=== PATIENT | female | born 1930 | race Caucasian/White ===

== ENCOUNTER 2017-05-16 09:10 | Emergency (ER) | payer OTHER ==
[~2017-05-16] VITALS: Ht 162.6 cm; Wt 90.4 kg
[~2017-05-16 09:10] MED LIST: ASPIRIN81 M1 PO; CARDURA4 MG PO; CATAPRES0.2 MG PO; FISH OIL 1,0001 EAC9 PO; HYZAAR 50-121 TABLET PO; LEVOXYL75 MCG PO; LEXAPRO10 MG PO; LOPRESSOR25 MG PO; LOPRESSOR50 MG PO; NORVASC5 MG PO; ONGLYZA5 MG PO; PRILOSEC20 MG PO; VESICARE5 MG PO; VITAMIN D2000 UNIT PO; VITAMIN D32000 UNI1 PO; XANAX0.25 MG PO; XARELTO15 MG PO
[2017-05-16 10:22] LABS: BASOPHIL COUNT 0.1 K/uL (0-0.1); EOSINOPHIL (%) 6.8 % (0-5); EOSINOPHIL COUNT 0.6 K/uL (0-0.3); HEMATOCRIT 39.6 % (36.0-46.0); IMMATURE GRANULOCYTE (%) 0.3 % (0.0-0.7); INSTRUMENT ABS NEUTROPHIL CT 5.4 K/uL; MCH 27.5 PG (29.0-34.0); MCHC 32.3 G/DL (30.0-36.0); MEAN PLAT.VOLUME 9.8 uM^3 (9.5-12.4); MONOCYTE (%) 8.4 % (3-12); MONOCYTE COUNT 0.7 K/uL (0-0.8); NEUTROPHIL (%) 61.5 % (45-76); NEUTROPHIL COUNT 5.4 K/uL (1.8-6.4); PLATELET COUNT 196 K/uL (156-360); RBC DIS.WIDTH-CV 13.5 % (11.8-14.6); RBC DIS.WIDTH-SD 42.1 % (39-53); RED BLOOD COUNT 4.66 M/uL (3.80-5.20); WHITE BLOOD COUNT 8.8 K/uL (4.1-10.2)
[2017-05-16 10:30] LABS: CHLORIDE 105 mEq/L (99-109); POTASSIUM 3.9 mEq/L (3.7-5.4); SODIUM 140 mEq/L (136-147)
[2017-05-16 10:31] LABS: GLUCOSE 115 mg/dL (70-99)
[2017-05-16 10:33] LABS: ANION GAP 12 MEQ/L (2-14)
[2017-05-16 10:35] LABS: GFR ESTIMATE (CALCULATED) 45 mL/min/
[2017-05-16 10:36] LABS: UREA NITROGEN (BUN) 23 mg/dL (9-23)
[2017-05-16] MEDS ORDERED: PREDNISONE50 MG PO (11:55)
[2017-05-16 12:09] VITALS: BP 152/66
== END 2017-05-16 12:09 | disposition home or self-care (01) ==
LOC: EME 09:10
PROVIDERS: Emergency Medicine
DX: L30.9 Dermatitis, unspecified (principal); R00.2 Palpitations; E11.9 Type 2 diabetes mellitus without complications; Z79.84 Long term (current) use of oral hypoglycemic drugs; Z79.01 Long term (current) use of anticoagulants
CPT/HCPCS: 71010; 80048; 85025; 93005; 99281; 99284; J2930

== ENCOUNTER 2017-12-11 17:22 | Observation (INO) | payer OTHER ==
[~2017-12-11] VITALS: Ht 162.6 cm; Wt 91.8 kg
[~2017-12-11 17:22] MED LIST changes: +PREDNISONE50 MG PO
[2017-12-11 18:30] LABS: HEMATOCRIT 40.3 % (36.0-46.0); HEMOGLOBIN 13.1 G/DL (11.9-15.5); MCH 27.9 PG (29.0-34.0); MCHC 32.5 G/DL (30.0-36.0); MCV 85.7 FL (83-99); PLATELET COUNT 209 K/uL (156-360); RBC DIS.WIDTH-CV 13.3 % (11.8-14.6); RBC DIS.WIDTH-SD 42.1 % (39-53); WHITE BLOOD COUNT 7.4 K/uL (4.1-10.2)
[2017-12-11 18:46] LABS: CHLORIDE 104 mEq/L (99-109); POTASSIUM 4.4 mEq/L (3.7-5.4); SODIUM 138 mEq/L (136-147)
[2017-12-11 18:48] LABS: GLUCOSE 105 mg/dL (70-99)
[2017-12-11 18:52] LABS: CREATININE 1.1 mg/dL (0.6-1.3); GFR ESTIMATE (CALCULATED) 50 mL/min/
[2017-12-11 18:53] LABS: UREA NITROGEN (BUN) 30 mg/dL (9-23)
[2017-12-11 18:56] LABS: TROP-I INTERPRETATION NEGATIVE; TROPONIN-I < 0.01 ng/mL (0.0-0.30)
[2017-12-11] MEDS ORDERED: AMLODIPINE BESYL5 MG PO (19:49)
[2017-12-11] MEDS ORDERED: TRAMADOL HCL50 MG PO (19:49)
[2017-12-11] MEDS ORDERED: ALPRAZOLAM0.25 M2 PO (19:50)
[2017-12-11] MEDS ORDERED: CLONIDINE HCL0.2 MG PO (19:51)
[2017-12-11] MEDS ORDERED: LEVOTHYROXINE75 MCG PO (19:52)
[2017-12-11] MEDS ORDERED: LOSARTAN-HCTZ1 EACH PO (19:52)
[2017-12-11] MEDS ORDERED: TYLENOL EXTRA500 MG PO (19:58)
[2017-12-11 23:12] LABS: TROP-I INTERPRETATION NEGATIVE; TROPONIN-I < 0.01 ng/mL (0.0-0.30)
[2017-12-11 23:20] VITALS: BP 192/86
[2017-12-12 05:06] VITALS: BP 144/64
[2017-12-12 06:27] LABS: HEMOGLOBIN 11.8 G/DL (11.9-15.5); MCH 27.3 PG (29.0-34.0); MCHC 31.9 G/DL (30.0-36.0); MCV 85.6 FL (83-99); PLATELET COUNT 205 K/uL (156-360); RBC DIS.WIDTH-CV 13.2 % (11.8-14.6); RBC DIS.WIDTH-SD 41.2 % (39-53); RED BLOOD COUNT 4.32 M/uL (3.80-5.20); WHITE BLOOD COUNT 7.8 K/uL (4.1-10.2)
[2017-12-12 06:51] LABS: CHLORIDE 107 MEQ/L (99-109); CREATININE 0.9 MG/DL (0.6-1.3); GFR ESTIMATE (CALCULATED) > 59 mL/min/; GLUCOSE 118 mg/dL (70-99); POTASSIUM 3.8 MEQ/L (3.7-5.4); SODIUM 141 MEQ/L (136-147); UREA NITROGEN (BUN) 26 mg/dL (9-23)
[2017-12-12 06:58] LABS: TROP-I INTERPRETATION NEGATIVE; TROPONIN-I < 0.01 ng/mL (0.0-0.30)
[2017-12-12 09:17] VITALS: BP 193/84
[2017-12-12 11:10] VITALS: BP 123/58
[2017-12-12 12:47] LABS: HEMOGLOBIN A1c (GLYCOHEMOGLOB) 6.1 % (Below 5.7)
== END 2017-12-12 11:43 | disposition home or self-care (01) ==
LOC: EME 17:22 → EDOF 20:15 → 5WEST 20:15 → ENRESERV 20:17 → 5WEST 22:57
PROVIDERS: Emergency Medicine; Hospitalist
DX: R07.9 Chest pain, unspecified (principal); R55 Syncope and collapse; I10 Essential (primary) hypertension; I48.0 Paroxysmal atrial fibrillation; E11.9 Type 2 diabetes mellitus without complications; I44.0 Atrioventricular block, first degree; E78.5 Hyperlipidemia, unspecified; Z79.01 Long term (current) use of anticoagulants; F03.90 Unspecified dementia, unspecified severity, without behavioral disturbance, psychotic disturbance, mood disturbance, and anxiety; K21.9 Gastro-esophageal reflux disease without esophagitis; Z87.440 Personal history of urinary (tract) infections; Z90.710 Acquired absence of both cervix and uterus; Z88.2 Allergy status to sulfonamides
CPT/HCPCS: 71046; 80048; 82948; 83036; 84484; 85027; 93005; 99281; 99285; G0378; J7030